=== PATIENT | male | born 1965 | race Caucasian/White ===

== ENCOUNTER 2024-07-12 11:16 | Emergency (ER) | payer MEDICAID ==
[~2024-07-12] VITALS: Ht 170.2 cm; Wt 66.0 kg
[2024-07-12 11:24] VITALS: O2SAT 99
[2024-07-12] MEDS ORDERED: KETOROLAC 15MG/ML VIAL IM ONE (13:00)
[2024-07-12] MEDS ORDERED: TETANUS, DIPHTHERIA, PERTUSSIS VAC/PF 0.5ML (>10YR OLD) IM ONE (13:00)
[2024-07-12] MEDS ORDERED: DOXY100C74 MT (14:06)
[2024-07-12] MEDS: KETOROLAC 15MG/ML VIAL IM NR (15:00)
[2024-07-12 15:01] VITALS: BP 133/71; PULSE 82; RESP 16; TEMP 37.16964; O2SAT 99
[2024-07-12] MEDS: TETANUS, DIPHTHERIA, PERTUSSIS VAC/PF 0.5ML (>10YR OLD) IM ONE (15:01)
== END 2024-07-12 15:01 | disposition home or self-care (01) ==
LOC: ER 11:16
DX: M79.671 Pain in right foot (principal)
CPT/HCPCS: 99284; 73630; 90715; 90471; 96372; J1885